=== PATIENT | female | born 1985 | race Caucasian/White ===

== ENCOUNTER 2023-11-09 14:18 | Outpatient (CLI) | payer BC, SELFPAY | END 2023-11-09 14:19 | disposition home or self-care (01) | PROVIDERS: Visit Provider Registered Nurse | DX: N92.0 Excessive and frequent menstruation with regular cycle (principal); E03.9 Hypothyroidism, unspecified | CPT/HCPCS: 84443; 87624 ==

== ENCOUNTER 2023-11-15 13:42 | Outpatient (CLI) | payer BC, SELFPAY ==
--- NOTE | 2023-11-15 14:00 | CRLHL7_ITS ---
For Patients: As a result of the Century Cures Act, medical imaging exams and procedure reports are released immediately into your electronic medical record. You may view this report before your referring provider. If you have questions, please contact your health care provider. INDICATION: Menorrhagia TECHNIQUE: Transabdominal and transvaginal scanning was performed. Transvaginal scanning was performed to optimally evaluate the endometrium and adnexa. Ovarian blood flow was evaluated with color-flow and pulsed Doppler. COMPARISON: None. FINDINGS: The uterus is normal in size and shape. The uterus measures 8.3 x 4.7 x 5.1 cm. No myometrial mass is evident. A 1.5 x 1.2 x 0.9 cm endometrial polyp is suspected in the fundus. Excluding the suspected polyp, the endometrial stripe appears to measure 8 mm in thickness. A 2.3 cm left ovarian follicular cyst is noted. The right ovary measures 3.3 x 2.4 x 1.6 cm and left 4.0 x 2.9 x 2.2 cm. Ovarian blood flow is demonstrated with color-flow and pulsed Doppler. No adnexal mass is evident. No free fluid is demonstrated. IMPRESSION: 1. Suspected 1.5 x 1.2 x 0.9 cm endometrial polyp in the fundus. 2. Excluding the suspected polyp, the endometrial stripe appears to measure 8 mm in thickness. Dictated by Bryn Patel MD @ 11/16/2023 5:00:32 AM (Electronically Signed)
== END 2023-11-15 13:43 | disposition home or self-care (01) ==
LOC: US 13:42
PROVIDERS: Visit Provider Registered Nurse
DX: N92.0 Excessive and frequent menstruation with regular cycle (principal); N84.0 Polyp of corpus uteri; R93.89 Abnormal findings on diagnostic imaging of other specified body structures
CPT/HCPCS: 76830; 76856

== ENCOUNTER 2023-12-07 16:20 | Outpatient (CLI) | payer BC, SELFPAY | END 2023-12-07 16:21 | disposition home or self-care (01) | LOC: NFLDREF 16:21 | PROVIDERS: Visit Provider Registered Nurse | DX: Z01.818 Encounter for other preprocedural examination (principal) | CPT/HCPCS: 85610 ==

== ENCOUNTER 2023-12-13 06:01 | Day surgery (SDC) | payer BC, SELFPAY ==
[2023-12-13] VITALS (7 sets, daily range): BP systolic 115–129; BP diastolic 71–85; PULSE 64–82; RESP 16; TEMP 36.4–36.6; O2SAT 96–100; BMI 27.6
[2023-12-13 06:20] LABS: Ur HCG Qualitative* Negative (Negative)
[2023-12-13] MEDS: LACTATED RINGERS 1000 ML 1,000 ML 100 ML IV (06:20)
[2023-12-13] MEDS: SODIUM CHLORIDE 0.9 % (FLUSH) 10 ML SYRINGE IVF (06:20)
--- NOTE | 2023-12-13 07:55 | W.ANESCHARGE ---
Anesthesia Charges Start Date/Time Anesthesia Start Date: 12/13/23 Anesthesia Start Time: 07:36 Stop Date/Time Anesthesia Stop Date: 12/13/23 Anesthesia Stop Time: 08:31
[2023-12-13] MEDS: BUPIVACAINE 0.25% 30 ML INJECTION (08:00)
[2023-12-13] MEDS: LIDOCAINE 1% MDV 20 ML INJECTION (08:00)
--- NOTE | 2023-12-13 08:22 | P.GYNPRC_ITS ---
Procedure Note Date of procedure: 12/13/23 Will [facility] bill your pro fee for this procedure?: Yes Pre-op diagnosis: 1. Menorrhagia. 2. Suspected endometrial polyps by ultrasound. Post-op diagnosis: 1. Menorrhagia. 2. Endometrial polyps. Procedure: 1. Hysteroscopy. 2. D&C. 3. Polypectomies. 4. Saranya endometrial ablation. Anesthesia: MAC and local (Paracervical block.) Complications: None. Surgeon: Marita Dorado MD Estimated blood loss (mL): 10 IV fluids (mL): 500 Urine Output (mL): 350 Pathology: specimen obtained, sent to pathology (Endometrial polyps and endometrial curettings sent together.) Condition: stable Disposition: same day Findings: Multiple endometrial polyps. Procedure Description: After obtaining informed consent, the patient was taken to the operating room where she received monitored anesthesia care. She was prepared and draped in the normal sterile fashion, in the dorsal lithotomy position. An open-sided bivalve speculum was introduced into the vagina and the cervix visualized. The anterior lip of the cervix was grasped with a single-tooth tenaculum for traction. A paracervical block was then administered using a total of 20 mL of a 50/50 mixture of 0.25% Marcaine and 1% lidocaine plain. The uterus was gently sounded. Sound length was 8.5 cm. The cervix length was determined to be 3.5 cm using Hegar dilators, yielding a uterine cavity length of 5 cm. The cervix was gently dilated to a #6 Hegar dilator. A hysteroscope was then advanced under direct visualization through the cervix into the uterine cavity. Sterile normal saline was used as distending medium. The uterine cavity was carefully inspected with the findings noted above. The TruClear morcellator was advanced through the hysteroscope and used to remove the endometrial polyps in their entirety. The hysteroscope was then removed. The endometrial lining was then sharply curetted. The Saranya device was then set to a cavity length of 5 cm, inserted through the cervical os into the uterine cavity to the level of the fundus, and deployed. The device was sealed against the cervix. A second tenaculum had to be placed on the posterior lip of the cervix to since the cervix around the device. The safety checks were then passed x2 and the 2-minute treatment cycle initiated. Following completion of the treatment cycle, the Saranya device was removed. The hysteroscope was advanced again into the uterine cavity and the uterine cavity inspected. A good ablation was noted from the internal os to fundus and to the cornua bilaterally. Pictures were taken for documentation purposes. The hysteroscope was removed. The tenaculums were removed. There was little bleeding from the tenaculum sites, which was controlled with direct pressure sponge stick. All instruments were then removed. The patient tolerated the procedure well. Sponge, lap, needle, and instrument counts reported as correct x2. The patient was taken to the recovery room awake in a stable condition. 30 mg of IV Toradol was admi nistered intravenously at the conclusion of the procedure.
--- NOTE | 2023-12-13 08:39 | SUR.OPER ---
deficit= 80
--- NOTE | 2023-12-13 09:33 | W.ANESCHARGE ---
Anesthesia Charges Start Date/Time Anesthesia Start Date: 12/13/23 Anesthesia Start Time: 07:36 Stop Date/Time Anesthesia Stop Date: 12/13/23 Anesthesia Stop Time: 08:31
== END 2023-12-13 09:58 | disposition home or self-care (01) ==
LOC: OR 06:03
PROVIDERS: Visit Provider Obstetrics & Gynecology
PROC: 0UF98ZZ Fragmentation in Uterus, Via Natural or Artificial Opening Endoscopic (ICD-10-PCS; CPT 58563; principal; 2023-12-13 07:30)
DX: N92.0 Excessive and frequent menstruation with regular cycle (principal); N84.0 Polyp of corpus uteri
CPT/HCPCS: 58563; 00944; 00952; 81025; 88305; J2003; C1782; J0665; J1100; J1885; J2250; J2405; J2704; J3010; J3490; J7120